=== PATIENT | male | born 1945 | race Caucasian/White ===

== ENCOUNTER → 2018-10-29 | Outpatient (CLI) | payer MEDICARE, OTHER | LOC: M.MRI 11:22 | DX: M47.812 Spondylosis without myelopathy or radiculopathy, cervical region (principal); G89.29 Other chronic pain; Z79.82 Long term (current) use of aspirin; Z79.899 Other long term (current) drug therapy; Z87.891 Personal history of nicotine dependence ==

== ENCOUNTER → 2018-11-12 | Outpatient (CLI) | payer MEDICARE, OTHER ==
[~2018-11-12] MED LIST: MIRAPEX0.5 MG PO; SINEMET 25-1001 EAC1 PO; TIZANIDINE PO; ZETIA10 MG PO
== END ==
LOC: M.PC 10-29 11:36
DX: M47.812 Spondylosis without myelopathy or radiculopathy, cervical region (principal); M50.30 Other cervical disc degeneration, unspecified cervical region; M48.02 Spinal stenosis, cervical region; M25.511 Pain in right shoulder; M25.512 Pain in left shoulder; G20 Parkinson's disease

== ENCOUNTER → 2018-12-10 | Outpatient (CLI) | payer MEDICARE, OTHER | LOC: M.PC 01:15 | DX: M50.31 Other cervical disc degeneration, high cervical region (principal); M48.02 Spinal stenosis, cervical region; M25.511 Pain in right shoulder; E78.00 Pure hypercholesterolemia, unspecified; M25.512 Pain in left shoulder; Z79.899 Other long term (current) drug therapy ==

== ENCOUNTER 2020-07-06 10:10 | Emergency (ER) | payer MEDICARE, OTHER ==
[~2020-07-06] VITALS: Ht 170.2 cm; Wt 78.9 kg
[2020-07-06] MEDS ORDERED: LISINOPRIL10 MG PO (10:23)
[2020-07-06] MEDS ORDERED: PROZAC10 M1 PO (10:24)
[2020-07-06] MEDS ORDERED: MIRAPEX1 MG PO (10:24)
[2020-07-06 10:55] LABS: ABSOLUTE BASOPHILS 0.1 thou/uL (0.0-0.2); ABSOLUTE EOSINOPHILS 0.1 thou/uL (0.0-0.7); ABSOLUTE LYMPHOCYTES 1.5 thou/uL (0.8-5.3); ABSOLUTE MONOCYTES 0.6 thou/uL (0.0-1.2); ABSOLUTE NEUTROPHILS 7.8 thou/uL (1.6-8.1); BASOPHILS 1.1 %; EOSINOPHILS 0.8 %; HEMATOCRIT 38.4 % (42.0-52.0); HEMOGLOBIN 13.5 gm/dL (14.0-18.0); LYMPHOCYTES 14.8 %; MCH 31.7 pg (26.0-34.0); MCHC 35.2 g/dL (28.0-37.0); MCV 90.2 fL (80.0-100.0); MONOCYTES 5.9 %; MPV 7.4 fl. (7.2-11.1); NUCLEATED RBCS 0 /100WBC; PLATELET COUNT* 260 thou/uL (150-400); POLYS 77.4 %; RBC 4.26 mil/uL (4.50-6.00)
[2020-07-06 11:01] LABS: URINE BILIRUBIN NEGATIVE (Negative); URINE BLOOD NEGATIVE (Negative); URINE CLARITY CLEAR; URINE COLOR YELLOW; URINE GLUCOSE-RANDOM NEGATIVE (Negative); URINE KETONES NEGATIVE (Negative); URINE LEUKOCYTES-REFLEX NEGATIVE (Negative); URINE NITRITE-REFLEX NEGATIVE (Negative); URINE PROTEIN NEGATIVE (Negative); URINE SPECIFIC GRAVITY 1.025 (1.005-1.030)
[2020-07-06 11:03] LABS: CALCIUM 8.6 mg/dL (8.5-10.1); POTASSIUM 3.9 mmol/L (3.5-5.1)
[2020-07-06 11:08] LABS: AMP/METHAMP Negative (Negative); BARBITURATES Negative (Negative); BENZODIAZEPINES Negative (Negative); COCAINE Negative (Negative); METHADONE Negative (Negative); OPIATES Negative (Negative); PCP Negative (Negative); THC Negative (Negative)
[2020-07-06 11:08] LABS: ALBUMIN 4.1 g/dL (3.4-5.0); TOTAL BILIRUBIN 0.8 mg/dL (<0.1-1.0); TOTAL PROTEIN 7.4 g/dL (6.4-8.2)
[2020-07-06 11:23] LABS: SALICYLATE < 2.8 mg/dL (2.8-20.0)
[2020-07-06 11:25] LABS: ACETAMINOPHEN < 2 ug/mL (10-30); ALCOHOL < 10 mg/dL (<10)
[2020-07-06 13:48] VITALS: BP 132/69
--- NOTE | 2020-07-06 17:43 | EKG ---
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1945 Requested By: Krista Cowan Order Number: [id number] MD: Jim Carodzo Measurements Intervals [place] Rate: 58 P: 19 ND: 174 QRS: 0 QRSD: 103 T: 21 QT: 439 QTc: 432 Interpretive Statements Sinus rhythm Left ventricular hypertrophy, by voltage Compared to ECG 04/23/2014 15:54:05 Left ventricular hypertrophy now present Electronically Signed On 07-06-2020 17:43:41 CDT by Jim Cardozo [email or web address] <ELECTRONICALLY SIGNED> By: Jim Cardozo MD, [facility] 07/06/20 1743 1055 1055 Jim Cardozo MD, [facility] /EPI
== END 2020-07-06 13:50 | disposition home or self-care (01) ==
LOC: M.ERS 10:10
PROVIDERS: Nurse Practitioner Family
DX: R44.1 Visual hallucinations (principal); M54.5 Low back pain; E78.00 Pure hypercholesterolemia, unspecified; Z88.8 Allergy status to other drugs, medicaments and biological substances; W18.39XA Other fall on same level, initial encounter; Y93.89 Activity, other specified; Y92.098 Other place in other non-institutional residence as the place of occurrence of the external cause; Y99.8 Other external cause status

== ENCOUNTER 2020-09-07 11:03 | Emergency (ER) | payer MEDICARE, OTHER ==
[~2020-09-07] VITALS: Ht 170.2 cm; Wt 78.9 kg
[~2020-09-07 11:03] MED LIST changes: +LISINOPRIL10 MG PO; +MIRAPEX1 MG PO; +PROZAC10 M1 PO
[2020-09-07 12:06] LABS: ABSOLUTE BASOPHILS 0.1 thou/uL (0.0-0.2); ABSOLUTE EOSINOPHILS 0.2 thou/uL (0.0-0.7); ABSOLUTE LYMPHOCYTES 1.6 thou/uL (0.8-5.3); ABSOLUTE MONOCYTES 0.6 thou/uL (0.0-1.2); ABSOLUTE NEUTROPHILS 7.3 thou/uL (1.6-8.1); EOSINOPHILS 2.3 %; HEMATOCRIT 35.3 % (42.0-52.0); HEMOGLOBIN 12.5 gm/dL (14.0-18.0); LYMPHOCYTES 16.6 %; MCH 31.9 pg (26.0-34.0); MCHC 35.4 g/dL (28.0-37.0); MCV 90.3 fL (80.0-100.0); MONOCYTES 6.1 %; MPV 7.6 fl. (7.2-11.1); NUCLEATED RBCS 0 /100WBC; PLATELET COUNT* 234 thou/uL (150-400); RBC 3.91 mil/uL (4.50-6.00); RDW-CV 12.8 % (10.5-14.5); WBC 9.9 thou/uL (4.0-11.0)
[2020-09-07 12:14] LABS: CALCIUM 8.7 mg/dL (8.5-10.1); CREATININE 1.2 mg/dL (0.6-1.3); POTASSIUM 4.3 mmol/L (3.5-5.1)
[2020-09-07 13:57] VITALS: BP 132/72
== END 2020-09-07 13:58 | disposition home or self-care (01) ==
LOC: M.ERS 11:03
PROVIDERS: Nurse Practitioner Family
DX: S50.12XA Contusion of left forearm, initial encounter (principal); S50.02XA Contusion of left elbow, initial encounter; M25.512 Pain in left shoulder; E78.00 Pure hypercholesterolemia, unspecified; I10 Essential (primary) hypertension; Z88.8 Allergy status to other drugs, medicaments and biological substances; W01.0XXA Fall on same level from slipping, tripping and stumbling without subsequent striking against object, initial encounter; Y93.89 Activity, other specified; Y92.89 Other specified places as the place of occurrence of the external cause; Y99.8 Other external cause status

== ENCOUNTER 2021-02-22 11:42 | Emergency (ER) | payer MEDICARE, OTHER ==
[~2021-02-22] VITALS: Ht 170.2 cm; Wt 74.4 kg
[2021-02-22] MEDS ORDERED: LIPITOR10 MG PO (11:47)
[2021-02-22] MEDS ORDERED: VITAMIN B (11:47)
[2021-02-22] MEDS ORDERED: GLUCOSAMINE S1000 M3 PO (11:48)
[2021-02-22] MEDS ORDERED: VITAMIN D3100 GM (11:48)
[2021-02-22] MEDS ORDERED: LISINOPRIL-HCT1 EACH PO (11:48)
[2021-02-22 14:30] LABS: ABSOLUTE BASOPHILS 0.1 thou/uL (0.0-0.2); ABSOLUTE EOSINOPHILS 0.2 thou/uL (0.0-0.7); ABSOLUTE LYMPHOCYTES 1.7 thou/uL (0.8-5.3); ABSOLUTE MONOCYTES 0.7 thou/uL (0.0-1.2); ABSOLUTE NEUTROPHILS 7.2 thou/uL (1.6-8.1); BASOPHILS 0.6 %; EOSINOPHILS 1.8 %; HEMATOCRIT 38.8 % (42.0-52.0); HEMOGLOBIN 13.2 gm/dL (14.0-18.0); LYMPHOCYTES 17.4 %; MCH 31.9 pg (26.0-34.0); MCV 93.8 fL (80.0-100.0); MONOCYTES 7.2 %; MPV 7.5 fl. (7.2-11.1); NUCLEATED RBCS 0 /100WBC; PLATELET COUNT* 272 thou/uL (150-400); RBC 4.14 mil/uL (4.50-6.00); RDW-CV 12.6 % (10.5-14.5); WBC 9.9 thou/uL (4.0-11.0)
[2021-02-22 14:40] LABS: CALCIUM 9.1 mg/dL (8.5-10.1); POTASSIUM 3.8 mmol/L (3.5-5.1)
[2021-02-22 14:46] LABS: ALBUMIN 3.8 g/dL (3.4-5.0); TOTAL BILIRUBIN 0.7 mg/dL (<0.1-1.0); TOTAL PROTEIN 6.8 g/dL (6.4-8.2)
--- NOTE | 2021-02-22 15:33 | EKG ---
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: DUONG : 1945 Requested By: Dylon Conti Order Number: [id number] MD: Que Serrano Measurements Intervals [place] Rate: 65 P: [place]: QRS: -2 QRSD: 100 T: 21 QT: 405 QTc: 422 Interpretive Statements Sinus rhythm Abnormal R-wave progression, early transition Left ventricular hypertrophy Compared to ECG 07/06/2020 10:55:57 No significant interval change Electronically Signed On 02-22-2021 15:33:35 FLEX O WRITER OPERATOR by Que Serrano [email or web address] <ELECTRONICALLY SIGNED> By: Que Serrano MD, [facility] 02/22/21 1533 1406 1406 Que Serrano MD, [facility] /EPI
[2021-02-22 16:49] VITALS: BP 139/76
== END 2021-02-22 16:49 | disposition home or self-care (01) ==
LOC: M.ERS 11:42
PROVIDERS: Family Medicine
DX: R53.1 Weakness (principal); Z20.822 Contact with and (suspected) exposure to COVID-19; M79.602 Pain in left arm; G20 Parkinson's disease; E78.00 Pure hypercholesterolemia, unspecified; I10 Essential (primary) hypertension; Z79.899 Other long term (current) drug therapy; Z88.8 Allergy status to other drugs, medicaments and biological substances

== ENCOUNTER 2021-03-13 10:40 | Inpatient (IN) | payer MEDICARE, OTHER ==
[~2021-03-13] VITALS: Ht 172.7 cm; Wt 67.4 kg
[~2021-03-13 10:40] MED LIST changes: +GLUCOSAMINE S1000 M3 PO; +LIPITOR10 MG PO; +LISINOPRIL-HCT1 EACH PO; +VITAMIN B; +VITAMIN D3100 GM
[2021-03-13 10:45] VITALS: BP 117/60
[2021-03-13] MEDS ORDERED: ASA81BEC PO (10:50)
[2021-03-13 11:50] LABS: HEMATOCRIT 34.3 % (42.0-52.0); HEMOGLOBIN 12.3 gm/dL (14.0-18.0); MCH 31.5 pg (26.0-34.0); MCHC 35.9 g/dL (28.0-37.0); MCV 87.8 fL (80.0-100.0); MPV 7.3 fl. (7.2-11.1); NUCLEATED RBCS 0 /100WBC; PLATELET COUNT* 220 thou/uL (150-400); RDW-CV 12.8 % (10.5-14.5); WBC 8.7 thou/uL (4.0-11.0)
[2021-03-13 12:06] LABS: CALCIUM 8.4 mg/dL (8.5-10.1); POTASSIUM 3.3 mmol/L (3.5-5.1)
[2021-03-13 12:17] LABS: ALBUMIN 3.2 g/dL (3.4-5.0); TOTAL BILIRUBIN 1.1 mg/dL (<0.1-1.0); TOTAL PROTEIN 6.7 g/dL (6.4-8.2)
[2021-03-13 12:55] LABS: ABSOLUTE LYMPHOCYTES 0.5 thou/uL (0.8-5.3); ABSOLUTE MONOCYTES 0.3 thou/uL (0.0-1.2); ABSOLUTE NEUTROPHILS 7.8 thou/uL (1.6-8.1); PLATELET ESTIMATE ADEQUATE
[2021-03-13 18:51] VITALS: BP 137/67
[2021-03-13 23:00] VITALS: BP 130/60
[2021-03-14 08:00] VITALS: BP 131/57
[2021-03-14 12:00] VITALS: BP 130/65
--- NOTE | 2021-03-14 13:14 | EKG ---
[place] [address] ELECTROCARDIOGRAM REPORT Name: JOSH BAIN Room: [place] [address] ADM [facility]#: [id number] Admission: 03/13/21 Attend Phys: Vick Robbins Discharge: Date of : 49 Date of Service: 03/13/21 1127 Report #: [id number] THIS REPORT FOR: //name// [facility] ED Test Date: 2021-03-13 Test Time: 11:27:44 Pat Name: JOSH ODELL Department: Room: [facility] Gender: M System Manager: GRABIEL : 1945 Requested By: Simone Bosch Order Number: [id number] MD: Jim Cardozo Measurements Intervals [place] Rate: 71 P: -1 [place]: 159 QRS: 3 QRSD: 97 T: 28 QT: 381 QTc: 414 Interpretive Statements Sinus rhythm Abnormal R-wave progression, early transition Compared to ECG 02/22/2021 14:06:06 Left ventricular hypertrophy no longer present Electronically Signed On 03-14-2021 13:14:12 APPELLATE LAW CLERK by Jim Cardozo [email or web address] <ELECTRONICALLY SIGNED> By: Jim Cardozo MD, FAC 03/14/21 1314 1127 1127 Jim Cardozo MD, [facility] /EPI
[2021-03-14 17:51] VITALS: BP 126/61
[2021-03-14 21:00] VITALS: BP 126/61
[2021-03-15 01:00] VITALS: BP 118/50
[2021-03-15 05:20] VITALS: BP 112/50
[2021-03-15 08:32] LABS: CALCIUM 8.4 mg/dL (8.5-10.1); CREATININE 0.8 mg/dL (0.6-1.3); POTASSIUM 3.7 mmol/L (3.5-5.1)
[2021-03-15 09:01] VITALS: BP 125/62
[2021-03-15 09:25] VITALS: BP 149/62
[2021-03-15 18:47] VITALS: BP 134/71
[2021-03-15 19:57] VITALS: BP 140/70
[2021-03-16] VITALS: BP 106/62
[2021-03-16 04:00] VITALS: BP 142/64
[2021-03-16 08:36] VITALS: BP 119/74
[2021-03-16 11:37] VITALS: BP 164/77
[2021-03-16 15:42] VITALS: BP 146/64
[2021-03-16 20:00] VITALS: BP 143/59
[2021-03-17] VITALS: BP 163/63
[2021-03-17 04:00] VITALS: BP 132/64
[2021-03-17 08:00] VITALS: BP 132/62
[2021-03-17 12:00] VITALS: BP 151/77
[2021-03-17 16:00] VITALS: BP 142/70
[2021-03-17 19:40] VITALS: BP 128/71
[2021-03-18] VITALS: BP 140/70
[2021-03-18 04:00] VITALS: BP 139/73
[2021-03-18 08:00] VITALS: BP 116/62
[2021-03-18 12:17] VITALS: BP 162/84
[2021-03-18 16:22] VITALS: BP 136/65
[2021-03-18 19:40] VITALS: BP 99/52
[2021-03-19 00:27] VITALS: BP 112/60
[2021-03-19 04:15] VITALS: BP 138/66
[2021-03-19 08:12] VITALS: BP 136/70
[2021-03-19 12:00] VITALS: BP 117/60
[2021-03-19 16:00] VITALS: BP 140/66
[2021-03-19 20:00] VITALS: BP 104/53
[2021-03-20 01:42] VITALS: BP 135/57
[2021-03-20 05:48] VITALS: BP 129/60
[2021-03-20 08:01] VITALS: BP 121/50
[2021-03-20 12:00] VITALS: BP 122/63
[2021-03-20 16:00] VITALS: BP 122/58
[2021-03-20 20:00] VITALS: BP 123/63
[2021-03-21] VITALS: BP 114/85
[2021-03-21 04:51] VITALS: BP 127/54
[2021-03-21 08:00] VITALS: BP 91/43
[2021-03-21 12:00] VITALS: BP 143/73
[2021-03-21 16:00] VITALS: BP 131/53
[2021-03-21 20:00] VITALS: BP 144/61
[2021-03-22] VITALS: BP 128/44
[2021-03-22 04:00] VITALS: BP 117/56
[2021-03-22 08:00] VITALS: BP 119/39
[2021-03-22 11:52] VITALS: BP 108/66
[2021-03-22 15:35] VITALS: BP 142/71
[2021-03-22 20:00] VITALS: BP 120/49
[2021-03-23 00:26] VITALS: BP 119/77
[2021-03-23 04:00] VITALS: BP 138/53
[2021-03-23 08:00] VITALS: BP 123/64
[2021-03-23 11:55] VITALS: BP 140/80
[2021-03-23 16:03] VITALS: BP 130/62
[2021-03-23 20:00] VITALS: BP 147/62
[2021-03-24 00:31] VITALS: BP 117/63
[2021-03-24 04:00] VITALS: BP 128/69
== END 2021-03-24 16:30 | DRG 177 ==
LOC: M.ERS 10:40 → M.TBA-ER 14:14 → M.ORTHSURG 03-15 09:01
PROVIDERS: Physician Assistant Medical; ADMIT Internal Medicine; ATTEND Internal Medicine
PROC: XW033E5 Introduction of Remdesivir Anti-infective into Peripheral Vein, Percutaneous Approach, New Technology Group 5 (ICD-10-PCS; principal; 2021-03-13)
PROC: 05HB33Z Insertion of Infusion Device into Right Basilic Vein, Percutaneous Approach (ICD-10-PCS; 2021-03-16)
DX: U07.1 COVID-19 (principal); G93.41 Metabolic encephalopathy; J12.82 Pneumonia due to coronavirus disease 2019; E78.00 Pure hypercholesterolemia, unspecified; G20 Parkinson's disease; E87.6 Hypokalemia; D64.9 Anemia, unspecified; E88.09 Other disorders of plasma-protein metabolism, not elsewhere classified; F02.80 Dementia in other diseases classified elsewhere, unspecified severity, without behavioral disturbance, psychotic disturbance, mood disturbance, and anxiety; R00.1 Bradycardia, unspecified; Z88.8 Allergy status to other drugs, medicaments and biological substances